=== PATIENT | male | born 1995 | race Hispanic/Latino ===

== ENCOUNTER 2020-01-17 02:05 | Emergency (ER) | payer BC ==
[~2020-01-17] VITALS: Ht 167.6 cm; Wt 79.4 kg
[2020-01-17] MEDS ORDERED: KEFLEX500 MG PO (02:36)
== END 2020-01-17 02:50 | disposition home or self-care (01) ==
LOC: FSED 02:05
DX: R50.9 Fever, unspecified (principal); R05 Cough; J20.9 Acute bronchitis, unspecified; J02.9 Acute pharyngitis, unspecified
CPT/HCPCS: 83518; 87400; 99283